=== PATIENT | female | born 2000 | race African-American/Black ===

== ENCOUNTER 2020-12-03 11:55 | Emergency (ER) | payer OTHER ==
[~2020-12-03] VITALS: Ht 149.9 cm; Wt 63.5 kg
[2020-12-03 12:25] VITALS: BP 126/60
--- NOTE | 2020-12-03 12:29 | NUR ---
Patient to lobby for next available bed.
--- NOTE | 2020-12-03 12:43 | NUR ---
PT TAKEN TO BED 7
--- NOTE | 2020-12-03 12:44 | NUR ---
ADELAIDA Latham is evaluating patient at bedside
[2020-12-03] MEDS ORDERED: LIDOCAINE MPF 1% 10 MG/ML VIAL INJ ONE (12:45)
[2020-12-03] MEDS ORDERED: BACITRACIN OINT 500 UNITS/GM PKT TP ONE (12:45)
--- NOTE | 2020-12-03 12:45 | NUR ---
20 Y/O FEMALE C/O LACERATION TO R EYEBROW S/P MECHANICAL FALL WALKING UPTHE STAIRS TODAY. CONTROLLED BLEEDING AT THIS TIME, LAST TETANUS X1 YR AGO. PT C/O HEADACHE, 05/18. DENIES LOC. DENIES N/V/DIZZINESS. PT A/O X4 WITH EVEN AND UNLABORED RESPIRATIONS PMH: ASTHMA ALLERGIES:PCN
--- NOTE | 2020-12-03 12:49 | NUR ---
PER ERMD LAC TRY SET UP WAS DONE BY BED SIDE.
--- NOTE | 2020-12-03 13:02 | NUR ---
ADELAIDA BENSON AT BEDSIDE FOR PROCEDURE
[2020-12-03] MEDS ORDERED: IBUP-2213 PO (13:17)
--- NOTE | 2020-12-03 13:35 | NUR ---
APPLIED BACITRACIN TO PT'S LAC AND DRESSED WITH NON-ADHERENT GUAZE PAD.
--- NOTE | 2020-12-03 13:45 | NUR ---
Patient discharged with v/s stable. Written and verbal after care instructions ABOUT LACERATION CARE given and explained. Patient alert, oriented and verbalized understanding of instructions. Ambulatory with steady gait. All questions addressed prior to discharge. ID band removed. Patient advised to follow up with PMD. Rx of IBUPROFEN given. Patient educated on indication of medication including possible reaction and side effects. Opportunity to ask questions provided and answered.
== END 2020-12-03 13:45 | disposition home or self-care (01) ==
LOC: MED 11:55
DX: S01.111A Laceration without foreign body of right eyelid and periocular area, initial encounter (principal); Z79.899 Other long term (current) drug therapy; W01.198A Fall on same level from slipping, tripping and stumbling with subsequent striking against other object, initial encounter; Y93.89 Activity, other specified; Y92.89 Other specified places as the place of occurrence of the external cause; Y99.8 Other external cause status
CPT/HCPCS: 12011; 99282; J2001

== ENCOUNTER 2020-12-10 19:00 | Emergency (ER) | payer OTHER ==
[~2020-12-10] VITALS: Ht 149.9 cm; Wt 63.5 kg
[~2020-12-10 19:00] MED LIST: IBUP-2213 PO
[2020-12-10 19:01] VITALS: BP 130/69
--- NOTE | 2020-12-10 19:06 | NUR ---
PT AMB TO BED 4.
--- NOTE | 2020-12-10 19:25 | NUR ---
Pt seen and treated by PA. No nursing interventions needed.
== END 2020-12-10 19:25 | disposition home or self-care (01) ==
LOC: MED 19:00
DX: S01.111D Laceration without foreign body of right eyelid and periocular area, subsequent encounter (principal); J45.909 Unspecified asthma, uncomplicated; Z88.0 Allergy status to penicillin; Z79.899 Other long term (current) drug therapy; X58.XXXD Exposure to other specified factors, subsequent encounter
CPT/HCPCS: 99281